=== PATIENT | male | born 1960 | race African-American/Black ===

== ENCOUNTER 2019-03-10 04:57 | Emergency (ER) | payer MEDICAID ==
[~2019-03-10] VITALS: Ht 185.4 cm; Wt 89.4 kg
[2019-03-10 07:00] LABS: Basophils # (auto) 0.1 uL; Basophils % (auto) 1.3 % (0.0-2.0); Eosinophils # (auto) 0.3 uL; Eosinophils % (auto) 5.9 % (0.0-7.0); Hematocrit 39.5 % (41.0-53.0); Hemoglobin 13.6 g/dL (13.5-17.5); Lymphocytes # (auto) 2.1 uL; Lymphocytes % (auto) 39.9 % (10.0-50.0); Mean Corpuscular Hemoglobin 31.4 pg (28.0-32.0); Mean Corpuscular Hgb Conc. 34.5 g/dL (32.0-36.0); Mean Corpuscular Volume 90.8 fL (80.0-100.0); Monocytes # (auto) 0.5 uL; Monocytes % (auto) 10.3 % (0.0-12.0); Neutrophils # (auto) 2.2 uL; Neutrophils % (auto) 42.6 % (37.0-80.0); Nucleated Red Blood Cells % 0.1 %; Platelet Count (auto) 142 10^3/uL (140-450); Red Blood Cells 4.35 10^6/uL (4.5-5.90); Red Cell Distribution Width 13.5 % (11.8-14.3); White Blood Cell 5.1 10^3/uL (4.4-10.8)
[2019-03-10] MEDS ORDERED: MECLIZINE HCL 25 MG TAB PO ONE (07:30)
[2019-03-10 07:49] LABS: Albumin 3.6 g/dL (3.4-5.0); Anion Gap 6 (5-15); Blood Urea Nitrogen 18 mg/dL (7-18); Calcium 8.5 mg/dL (8.5-10.1); Carbon Dioxide 28 mmol/L (21-32); Chloride 108 mmol/L (98-107); Glucose 83 mg/dL (74-106); Magnesium 2.3 mg/dL (1.6-2.6); Potassium 3.8 mmol/L (3.5-5.1); Sodium 142 mmol/L (136-145)
[2019-03-10 07:55] LABS: Alanine Aminotransferase 22 U/L (16-61); Alkaline Phosphatase 67 U/L (45-117); Aspartate Aminotransferase 20 U/L (15-37); BUN/Creatinine Ratio 16.4; Bilirubin, Total 0.5 mg/dL (0.2-1.0); GFR African American 88 mL/min; GFR Non-African American 73 mL/min
[2019-03-10 08:38] VITALS: BP 148/98
== END 2019-03-10 08:59 | disposition short-term general hospital (02) ==
LOC: ER 04:57
DX: I61.9 Nontraumatic intracerebral hemorrhage, unspecified (principal); F17.210 Nicotine dependence, cigarettes, uncomplicated; F12.10 Cannabis abuse, uncomplicated; F14.10 Cocaine abuse, uncomplicated; M19.90 Unspecified osteoarthritis, unspecified site
CPT/HCPCS: 36415; 70450; 80053; 83735; 84484; 85025; 93005; 99291; J8597